=== PATIENT | female | born 1980 | race Caucasian/White ===

== ENCOUNTER → 2023-10-08 06:38 | Day surgery (SDC) | payer OTHER, SELFPAY | LOC: GI 06:38 | PROVIDERS: ATTENDING PHYSICIAN Internal Medicine Gastroenterology | DX: Z12.11 Encounter for screening for malignant neoplasm of colon (principal); R93.3 Abnormal findings on diagnostic imaging of other parts of digestive tract; Z83.719 Family history of colon polyps, unspecified; K64.8 Other hemorrhoids | CPT/HCPCS: 45380; 88305 ==

== ENCOUNTER 2023-12-24 08:15 | Emergency (ER) | payer OTHER, SELFPAY ==
[2023-12-24 08:22] VITALS: BP 161/101
--- NOTE | 2023-12-24 09:02 | ED.GENMED ---
History of Present Illness
General
Chief Complaint: Headache
Time Seen by Provider: 12/24/23 08:45
History of Present Illness
History of Present Illness:
43-year-old female with history of depression, hypertension, migraines presenting to the emergency department with migraine. Patient reports that she woke up this morning at 3 AM with a migraine. Reports that her headache is in her forehead,
radiates to the back of her head with associated nausea and vomiting. Reports that her symptoms feel consistent with her classic migraines with photophobia, phonophobia. Denies any inciting injury or trauma. Denies any fever. Denies any
weakness, numbness or tingling to her extremities. Denies chest pain or difficulty breathing. Denies any abdominal pain. Reports her last migraine was several months ago. She tried taking Toradol and Zofran prior to arrival without relief of
symptoms because she vomited. Denies additional acute medical complaints
Past History
Past History
ED Past Medical History: HTN (Takes lisinopril), Psychiatric and Other (Migranes, Anxiety/depression, LBBB, [place] fracture of the L foot); Negative Asthma, Hypercholesterolemia or NIDDM
ED Past Surgical History: Other (Oral surgery)
Social History
Tobacco: Former smoker
Alcohol: Occasional
Drug: None
Personal: Single
Living: with family
Employment: Employed
Family History
Family History: Other (Noncontributory)
Phy Exam
Physical Exam
Physical Exam:
General: Well-appearing, no clinical signs of dehydration, nontoxic and in no acute distress
HEENT: protecting airway
Neck: appears supple
CV: Normal heart rate, regular rhythm, no evidence of cyanosis
Resp: No accessory muscle use, no increased work of breathing, lungs clear to auscultation bilaterally
Abd: Soft and non-distended, no tenderness to palpation, normal bowel sounds
Extremities: No deformities, no swelling, no erythema
Neuro: alert, no focal neurologic deficit
: deferred
Rectal: deferred
Psych: Normal affect
Skin: Intact
Course
Orders/Labs/Results
Orders:
Orders
12/24/23 09:00
Dexamethasone Sod Phosphate [Decadron] 10 mg IV NOW STA
Diphenhydramine [Benadryl] 50 mg IV NOW STA
Ketorolac [Toradol] 15 mg IV NOW STA
Prochlorperazine [Compazine] 10 mg IV NOW STA
12/24/23 09:01
0.9% Sodium Chloride 1000 ml [Nss] 1,000 ml IV BOLUS
12/24/23 11:07
Ketorolac [Toradol] 15 mg IV NOW STA
Vital Signs
Initial and Last Documented VS:
Initial Vital Signs
Temp Pulse Resp BP Pulse Ox
98.3 F 83 17 161/101 98
12/24/23 08:22 12/24/23 08:22 12/24/23 08:22 12/24/23 08:22 12/24/23 08:22
Last Documented Vital Signs
Temp Pulse Resp BP Pulse Ox
98.3 F 80 18 134/78 99
12/24/23 08:22 12/24/23 11:01 12/24/23 11:01 12/24/23 11:01 12/24/23 11:01
MDM/Problems Addressed
MDM/Problems Addressed:
43-year-old female with history of migraines presenting to the emergency department for migraine headache. Vital signs on arrival significant for hypertension, however known history.
On exam, patient is in no acute distress, however does appear uncomfortable secondary to her headache. Patient afebrile, nontoxic. No meningismus. No concern for meningitis or infectious component. No focal neurologic deficits or concern for
central neurologic process. No reported trauma, no signs of head injury concern for traumatic injury. Symptoms appear consistent with tension versus migrainous headache, particularly given known history. Patient reports that her symptoms feel
very similar to her typical migraines. Reports in the past she has had improvement with Compazine, Benadryl, Decadron and Dilaudid. Will administer Toradol and escalate to narcotics as needed. Will administer IV fluids. Will continue to monitor
and reassess. No indication for head imaging at this time
10:10 -patient sleeping comfortably on reassessment
11:20 -patient continues to express symptom improvement. Feel stable for discharge with continued outpatient supportive therapy. Return precautions discussed and patient verbalized understanding
*Critical Care Note
Total Time (30-74mins, 75-104mins- exclusive of procedures): Not Applicable
ED Attending Note
-
Portions of this chart may have been created with voice recognition software.� Occasional wrong word or��sound alike� substitutions may have occurred due to the inherent limitations of voice recognition software.
Discharge Plan
Departure
Prescriptions:
No Action
Theragen Tablet
1 tab PO DAILY
ketorolac 10 mg Tablet
10 mg PO Q6H PRN (Reason: moderate pain)
lisinopril 40 mg Tablet
40 mg PO DAILY
bupropion HCl 300 mg Tablet Extended Release 24 Hr
300 mg PO DAILY
ondansetron 4 mg tablet,disintegrating
4 mg PO DAILYPRN PRN (Reason: nausea and vomiting)
Referrals:
Yair Jennings CRNP [Family Provider] -
Interventions
Interventions:
*Risk Screen - Suicide Last Done: 12/24/23 08:26
*Neglect/Abuse Screening Last Done: 12/24/23 08:26
*ED COVID-19 Vaccine History Last Done: 12/24/23 08:26
ED- Neurological Assessment Last Done: 12/24/23 09:20
Discharge Date and Time
Print Language: PARAGUAYAN
[2023-12-24] MEDS: TORADOL 15 MG IV ×2 (09:07→11:15)
[2023-12-24] MEDS: BENADRYL 50 MG IV (09:08)
[2023-12-24] MEDS: NSS 1000 IV (09:08)
[2023-12-24] MEDS: DECADRON 10 MG IV (09:08)
[2023-12-24] MEDS: COMPAZINE 10 MG IV (09:08)
[2023-12-24 11:01] VITALS: BP 134/78
== END 2023-12-24 11:28 | disposition home or self-care (01) ==
LOC: EMR 08:15
PROVIDERS: EMERGENCY PHYSICIAN Student in an Organized Health Care Education/Training Program; FAMILY PHYSICIAN Nurse Practitioner Family
DX: G43.909 Migraine, unspecified, not intractable, without status migrainosus (principal); F32.A Depression, unspecified; I10 Essential (primary) hypertension; I44.7 Left bundle-branch block, unspecified; Z87.891 Personal history of nicotine dependence
CPT/HCPCS: 99282; 96374; 96375; 96376; 96361

== ENCOUNTER → 2024-03-02 08:35 | Outpatient (REF) | payer OTHER, SELFPAY | LOC: HWWDC 08:35 | PROVIDERS: ATTENDING PHYSICIAN Nurse Practitioner | DX: Z12.31 Encounter for screening mammogram for malignant neoplasm of breast (principal) | CPT/HCPCS: 77063; 77067 ==

== ENCOUNTER → 2024-09-08 07:14 | Outpatient (REF) | payer OTHER, SELFPAY | LOC: HWRCS 07:14 | PROVIDERS: ATTENDING PHYSICIAN Internal Medicine Cardiovascular Disease; FAMILY PHYSICIAN Nurse Practitioner Adult Health | DX: I44.7 Left bundle-branch block, unspecified (principal); I10 Essential (primary) hypertension | CPT/HCPCS: 93306 ==

== ENCOUNTER 2024-12-29 13:46 | Emergency (ER) | payer OTHER, SELFPAY ==
[2024-12-29 13:54] VITALS: BP 132/82
[2024-12-29 14:16] LABS: Hematocrit 37.5 % (37.0-47.0); Hemoglobin 12.4 g/dL (12.0-16.0); Mean Corp Hgb Conc. 33.1 g/dL (33.0-37.0); Mean Corpuscular Volume 87.0 fL (81.0-99.0); Nucleated Red Blood Cells % 0 %; Platelet Count 347 10^3/uL (130-400); Red Cell Dist. Width 13.6 % (11.5-14.5)
[2024-12-29 14:27] LABS: D-Dimer 0.31 ug/mlFEU (0.00-0.50)
[2024-12-29 14:30] LABS: HCG, Serum Qualitative Screen Negative
[2024-12-29 14:41] LABS: Troponin I < 0.012 ng/ml
[2024-12-29 15:02] LABS: ALT (SGPT) 20 U/L (0-35); AST (SGOT) 21 U/L (14-36); Albumin 4.5 g/dl (3.5-5.0); Alkaline Phosphatase 89 U/L (38-126); Blood Urea Nitrogen 16 mg/dl (7-17); Calcium 9.8 mg/dl (8.4-10.2); Carbon Dioxide 23 mmol/L (22-30); Chloride 107 mmol/L (98-107); Glucose 91 mg/dl (70-99); Lipase 56 U/L (23-300); Potassium 4.3 mmol/L (3.5-5.1); Sodium 138 mmol/L (135-145); Total Protein 7.1 g/dl (6.3-8.2); eGFR > 60.00
[2024-12-29 16:35] VITALS: BP 156/92
--- NOTE | 2024-12-29 16:44 | ED.GENMED ---
History of Present Illness
General
Chief Complaint: Chest Pain
Time Seen by Provider: 12/29/24 16:34
Nursing documentation reviewed up to this point in time: agreed with
History of Present Illness
History of Present Illness:
44-year-old female presents to the ER for evaluation of sharp intermittent central chest discomfort which has been happening since yesterday. Patient denies any associated indigestion or shortness of breath. She has not tried any medications to
alleviate the symptoms because they are coming and going very quickly. No association with activity or change in position. Patient did recently travel from [place] via car. She has no prior personal history of ACS or venous thromboembolic
disease. She does not smoke. She denies . She denies any cough or cold symptoms. No fevers or chills. No peripheral edema. Patient reports that she was having significant heartburn symptoms earlier in the month and completed a 2-week
course of Pepcid. She denies any recent indigestion or symptoms that she would correlate with acid reflux
Past History
Past History
ED Past Medical History: HTN (Takes lisinopril), Psychiatric and Other (Migranes, Anxiety/depression, LBBB, [place] fracture of the L foot); Negative Asthma, Hypercholesterolemia or NIDDM
ED Past Surgical History: Other (Oral surgery)
Social History
Tobacco: Former smoker
Alcohol: Occasional
Drug: None
Personal: Single
Living: with family
Employment: Employed
Family History
Family History: Other (Noncontributory)
Review of Systems
Review of Systems
Allergies reviewed?: Yes
Phy Exam
Physical Exam
Physical Exam:
Patient is awake, alert, appears in no acute distress, obese, head is normocephalic atraumatic, PERRL, EOMI, mucous membranes moist, conjunctiva pink, heart regular rate and rhythm not murmurs or ectopy, lungs are clear to auscultation without
wheezes rales or rhonchi, pain is not reproducible on exam, no tenderness on palpation of chest wall, no abnormal chest wall excursion, no crepitus, no increased work of breathing, abdomen is soft, obese, nontender, no guarding or rebound,
extremities without edema, 2+ DP pulses present symmetric bilateral feet, GCS is 15, no rash noted on chest
Scores
Heart Score for Chest Pain Patients
STEMI patient?: No
History: Slightly or Non-Suspicious
ECG: Normal
Age: >45 - <65 years
Risk Factors: 1 or 2 Risk Factors
Troponin: </= Normal Limit
Heart Score for Chest Pain Patients: 2
Heart Score Risk: 2.5% MACE over next 6 weeks
Course
Orders/Labs/Results
Orders:
Orders
12/29/24 13:49
Electrocardiogram (*1) Urgent
Reason for Study: Chest Pain
EKG- Treatment ONCE
12/29/24 14:04
Test Result ONCE
12/29/24 14:07
Complete Blood Count/With Diff Urgent
Comprehensive Metabolic Panel Urgent
D-Dimer Urgent
HCG, Serum Qualitative Screen Urgent
Lipase Urgent
Troponin I Urgent
12/29/24 16:36
CR Chest - 2 Views Urgent
Comment:
Reason For Exam: chest pain
12/29/24 14:07
12/29/24 14:07
Very reassuring labs including negative D-dimer, negative troponin, CBC and chemistries within normal limits
Vital Signs
Initial and Last Documented VS:
Initial Vital Signs
Temp Pulse Resp BP Pulse Ox
98.4 F 87 18 132/82 97
12/29/24 13:54 12/29/24 13:54 12/29/24 13:54 12/29/24 13:54 12/29/24 13:54
Last Documented Vital Signs
Temp Pulse Resp BP Pulse Ox
98.4 F 82 17 156/92 97
12/29/24 13:54 12/29/24 16:45 12/29/24 16:45 12/29/24 16:35 12/29/24 16:48
MDM/Problems Addressed
Differential Diagnosis Includes:
Differential diagnosis considered but not limited to muscle strain, ACS, pulmonary embolism, arrhythmia, GERD, esophageal spasm along with other etiologies considered
Chronic conditions affecting care:
Hypertension, GERD
*Radiology
Radiology exam reviewed: preliminary read by ED provider (I dependently and interpreted two-view chest showing no acute process, normal cardiac silhouette, clear lungs, no effusions, no pneumothorax)
*Pulse Oximetry
SaO2: 97
Oxygen Mode of Delivery: Room air
Patient hypoxic: no
*EKG
Interpreted by ED Provider?: Yes (Independent viewed interpreted twelve-lead EKG showing normal sinus rhythm, left bundle branch block, left axis deviation, rate 83, no ST elevation, this is an abnormal tracing without acute ischemia or change
compared to prior from10/15/2022)
*Chief Technology Officer Interpretation
Rate: normal (I independently viewed and interpreted rhythm strip showing normal sinus rhythm, left bundle branch block, no ectopy)
*Critical Care Note
Total Time (30-74mins, 75-104mins- exclusive of procedures): Not Applicable
Update Note
Update Note:
Patient resting in no acute distress. I discussed with her possible treatment in the ER including Tylenol or NSAIDs-she is declining treatment as the pain is intermittent and brief in nature. I discussed with patient very reassuring workup
including negative D-dimer, negative troponin, normal chest x-ray. I discussed with patient most likely etiology of symptoms related musculoskeletal etiology although she may also be having some GERD. I discussed with her continued use of Pepcid
is available [id number] and gentle stretching exercises. I discussed with her benefit of follow-up with primary care physician. She expressed understanding of discharge plan and had no questions prior to leaving the department.
ED Attending Note
-
Portions of this chart may have been created with voice recognition software.� Occasional wrong word or��sound alike� substitutions may have occurred due to the inherent limitations of voice recognition software.
Discharge Plan
Departure
Patient Disposition: Home (Routine Discharge)
Date of Disposition: 12/29/24
Time of Disposition: 17:16
Patient with high blood pressure during this ER visit?: Yes
Discharge Problem:
Chest pain
Instructions: Chest Pain PCP Follow Up, BLOOD PRESSURE
Prescriptions:
No Action
Theragen Tablet
1 tab PO DAILY
ketorolac 10 mg Tablet
10 mg PO Q6H PRN (Reason: moderate pain)
lisinopril 40 mg Tablet
40 mg PO DAILY
bupropion HCl 300 mg Tablet Extended Release 24 Hr
300 mg PO DAILY
ondansetron 4 mg tablet,disintegrating
4 mg PO DAILYPRN PRN (Reason: nausea and vomiting)
Activity Restrictions/Additional Instructions:
Continue using Pepcid as available [id number] daily until you are seen in follow-up with your primary care physician-please call their office tomorrow morning to schedule appointment for reevaluation and further care. You may add Tylenol as
needed for discomfort or topical pain relieving patches or creams given localized area of discomfort. Return to the ER for any concerns
Interventions
Interventions:
*Risk Screen - Suicide Last Done: 12/29/24 13:54
*General Assessment Last Done: 12/29/24 13:54
*Neglect/Abuse Screening Last Done: 12/29/24 13:54
*ED COVID-19 Vaccine History Last Done: 12/29/24 13:54
ED- Cardiac Assessment Last Done: 12/29/24 16:54
Discharge Date and Time
Print Language: SALVADOREAN
[2024-12-29 16:54] VITALS: BMI 38.3
[2024-12-29 17:45] VITALS: BP 130/86
--- NOTE | 2024-12-29 17:53 | EDRN ---
REviewed discharge instructions with patient. Verbalized understanding. Ambulated with steady gait to the lobby.
[2024-12-29 17:55] VITALS: BP 130/86
== END 2024-12-29 17:55 | disposition home or self-care (01) ==
LOC: EMR 13:46
PROVIDERS: Emergency Medicine; EMERGENCY PHYSICIAN Emergency Medicine; FAMILY PHYSICIAN Nurse Practitioner Adult Health
DX: R07.89 Other chest pain (principal); I10 Essential (primary) hypertension; I44.7 Left bundle-branch block, unspecified; F32.A Depression, unspecified; F41.9 Anxiety disorder, unspecified; G43.909 Migraine, unspecified, not intractable, without status migrainosus; E66.9 Obesity, unspecified; Z79.899 Other long term (current) drug therapy; Z87.891 Personal history of nicotine dependence
CPT/HCPCS: 99283; 71046; 80053; 83690; 84484; 84703; 85025; 85379; 93005

== ENCOUNTER → 2025-02-16 13:55 | Outpatient (REF) | payer OTHER, SELFPAY | LOC: DHSLP 13:55 | PROVIDERS: ATTENDING PHYSICIAN Internal Medicine; FAMILY PHYSICIAN Nurse Practitioner Adult Health | DX: G47.33 Obstructive sleep apnea (adult) (pediatric) (principal) | CPT/HCPCS: 95810 ==